=== PATIENT | male | born 1980 | race Caucasian/White ===

== ENCOUNTER 2023-05-18 18:19 | Emergency (ER) | payer BC ==
[~2023-05-18] VITALS: Ht 188 cm; Wt 102.1 kg
[2023-05-18 19:55] VITALS: BP 133/74; TEMP 98.9; O2SAT 99
[2023-05-18] MEDS ORDERED: LIDOCAINE 1%-EPI 1:100,000 20 ML VIAL ONE (20:31)
[2023-05-18] MEDS ORDERED: LIDOCAINE 0.5%-EPI 1:200,000 50 ML VIAL ONE (20:42)
[2023-05-18] MEDS ORDERED: CEPHALEXIN MONOHYDRATE 500 MG CAPSULE PO ONE ×2 (22:00→22:08)
[2023-05-18] MEDS ORDERED: SULFAMETH/TRIMETH 800/160 MG 1 UDTAB TABLET PO ONE (22:00)
[2023-05-18] MEDS ORDERED: CEPH500C2 PO (22:01)
[2023-05-18] MEDS ORDERED: SULF1TAB48 PO (22:01)
[2023-05-18] MEDS ORDERED: SULFAMETH/TRIMETH 800/160 MG 1 UDTAB TABLET ONE (22:08)
== END 2023-05-18 22:19 | disposition home or self-care (01) ==
LOC: ER 18:19
DX: L02.31 Cutaneous abscess of buttock (principal); E11.9 Type 2 diabetes mellitus without complications; Z90.89 Acquired absence of other organs
CPT/HCPCS: 99283; 10060; J3490 ×2; A6403 ×2